=== PATIENT | female | born 1950 | race Caucasian/White ===

== ENCOUNTER → 2017-03-03 | Outpatient (REF) | payer MEDICARE, OTHER | LOC: M SFHCWAGY 13:49 | PROVIDERS: ATTEND Nurse Practitioner Family | DX: Z12.4 Encounter for screening for malignant neoplasm of cervix (principal) ==

== ENCOUNTER → 2017-03-03 | Outpatient (CLI) | payer MEDICARE, OTHER ==
--- NOTE | 2017-03-03 15:28 | REPMRS ---
Patient History The patient states she had a clinical breast exam in 02/2017. Patient is postmenopausal. Family history of prostate cancer in father. Digital Woman Screen Mammo: March 03, 2017 - Exam #: [id number] Bilateral CC and MLO view(s) were taken. Technologist: Anne Hicks, Technologist Prior study comparison: March 02, 2016, digital woman screen mammo performed at [facility]. January 23, 2015, digital woman screen mammo performed at [facility] to [facility]. FINDINGS: There are scattered fibroglandular densities. There has been no change in the appearance of the mammogram from the prior studies. There is a mild amount of residual fibroglandular tissue which is fairly symmetric. There is no interval development of dominant mass, architectural distortion, or clustered microcalcification suggestive of malignancy. ASSESSMENT: BI-RADS/ACR category 1 mammogram. Negative. Recommendation Routine screening mammogram in 1 year (for women over age 40). This mammogram was interpreted with the aid of an FDA-approved computer-aided dectection system. Electronically Signed By: Amol Cyr MD 03/03/17 1623
== END ==
LOC: M WHC 13:17
PROVIDERS: ATTEND Nurse Practitioner Family
DX: Z12.31 Encounter for screening mammogram for malignant neoplasm of breast (principal); Z78.0 Asymptomatic menopausal state; Z12.4 Encounter for screening for malignant neoplasm of cervix; N90.4 Leukoplakia of vulva; N95.2 Postmenopausal atrophic vaginitis; Z12.12 Encounter for screening for malignant neoplasm of rectum
CPT/HCPCS: 82270; G0101; G0123; G0202

== ENCOUNTER → 2017-03-18 | Outpatient (REF) | payer MEDICARE, OTHER ==
[2017-03-18 12:58] LABS: MEAN CORPUSCULAR HEMOGLOBIN 30.4 pg (27.0-33.0); MEAN CORPUSCULAR HGB CONC 32.8 g/dl (32.0-36.5); MEAN CORPUSCULAR VOLUME 92.5 fl (80.0-96.0); RED CELL DISTRIBUTION WIDTH 13.1 % (11.5-14.5); WHITE BLOOD COUNT 5.3 K/mm3 (4.0-10.0)
[2017-03-18 14:20] LABS: ALBUMIN/GLOBULIN RATIO 1.38 (1.00-1.93); ALKALINE PHOSPHATASE 79 U/L (45-117); ALT/SGPT 27 U/L (12-78); ANION GAP 8 MEQ/L (8-16); AST/SGOT 14 U/L (15-37); BILIRUBIN,TOTAL 0.3 MG/DL (0.2-1.0); BLOOD UREA NITROGEN 11 MG/DL (7-18); CALCIUM LEVEL 9.2 MG/DL (8.8-10.2); CARBON DIOXIDE LEVEL 31 MEQ/L (21-32); CHLORIDE LEVEL 104 MEQ/L (98-107); CHOLESTEROL LEVEL 185 MG/DL (<200); CREATININE FOR GFR 0.74 MG/DL (0.55-1.02); GLOMERULAR FILTRATION RATE > 60.0 (>45); GLUCOSE, FASTING 72 MG/DL (80-110); MAGNESIUM LEVEL 2.2 MG/DL (1.8-2.4); POTASSIUM SERUM 4.1 MEQ/L (3.5-5.1); SODIUM LEVEL 143 MEQ/L (136-145); TOTAL PROTEIN 6.9 GM/DL (6.4-8.2); TRIGLYCERIDES LEVEL 131 MG/DL (<150)
== END ==
LOC: M LABDRAW1 09:01
PROVIDERS: ATTEND Nurse Practitioner Adult Health
DX: Z00.00 Encounter for general adult medical examination without abnormal findings (principal)

== ENCOUNTER 2017-06-19 12:23 | Emergency (ER) | payer MEDICARE, OTHER ==
[~2017-06-19] VITALS: Ht 177.8 cm; Wt 68.3 kg
[2017-06-19] MEDS ORDERED: MELO15TA4 PO (12:35)
--- NOTE | 2017-06-19 13:30 | REP ---
RIGHT WRIST, FOUR VIEWS: HISTORY: Fall. There is no acute fracture or dislocation. There is narrowing of the first carpometacarpal joint space with associated osteophyte formation. Small calcified densities are present in the ventral and dorsal soft tissue. This represents ligamentous or tendon calcification. IMPRESSION: There is no acute fracture or dislocation. Signed by Yasmani Chin MD 06/19/2017 01:47 P
[2017-06-19] MEDS ORDERED: ADACEL/BOOSTRIX VACCINE (DIPHTH/PERTUSS/ACELL/TETANUS)0.5ML SYR (90715) IM ONE (14:15)
[2017-06-19 14:22] VITALS: BP 162/71
== END 2017-06-19 14:27 | disposition home or self-care (01) ==
LOC: M ED 12:23
DX: S01.111A Laceration without foreign body of right eyelid and periocular area, initial encounter (principal); S05.11XA Contusion of eyeball and orbital tissues, right eye, initial encounter; S63.501A Unspecified sprain of right wrist, initial encounter; W01.0XXA Fall on same level from slipping, tripping and stumbling without subsequent striking against object, initial encounter; Y92.410 Unspecified street and highway as the place of occurrence of the external cause; Y93.89 Activity, other specified; Y99.8 Other external cause status; Z79.899 Other long term (current) drug therapy

== ENCOUNTER → 2018-05-25 | Outpatient (CLI) | payer MEDICARE, OTHER | LOC: M WHC 13:11 | DX: Z12.31 Encounter for screening mammogram for malignant neoplasm of breast (principal); Z78.0 Asymptomatic menopausal state; Z80.3 Family history of malignant neoplasm of breast | CPT/HCPCS: 77067 ==

== ENCOUNTER → 2019-07-03 | Outpatient (CLI) | payer MEDICARE, OTHER ==
[~2019-07-03] MED LIST: MELO15TA28 PO
--- NOTE | 2019-07-03 15:16 | REPMRS ---
Patient History The patient states she had a clinical breast exam in June 2019.Family history of prostate cancer in father, breast cancer at age 50 or over in maternal grandmother. Digital Woman Screen Mammo: July 03, 2019 - Exam #: [id number] Bilateral CC and MLO view(s) were taken. Technologist: Marisol Beal, Technologist Prior study comparison: May 25, 2018, bilateral digital woman screen mammo performed at [facility]. March 03, 2017, digital woman screen mammo performed at [facility]. March 02, 2016, digital woman screen mammo performed at [facility]. FINDINGS: The breast tissue is heterogeneously dense. This may lower the sensitivity of mammography. There is a moderate amount of heterogeneously dense fibroglandular tissue which is fairly symmetric. There is no interval development of dominant mass, architectural distortion, or grouped microcalcification typical of malignancy. There has been no change in the appearance of the mammogram from the prior studies. 3-D tomosynthesis shows no additional findings. Assessment: BI-RADS/ACR category 1 mammogram. Negative Mammogram. Recommendation Routine screening mammogram of both breasts in 1 year (for women over age 40). This patient's Lifetime Breast Cancer RIsk is estimated at 9.3 %. This mammogram was interpreted with the aid of an FDA-approved computer-aided dectection system. Electronically Signed By: Jelani Milner MD 07/03/19 0393
--- NOTE | 2019-07-07 11:59 | DEXA ---
AP SPINE L1 - L4 1.393 1.6 3.2 LT FEMUR TOTAL 0.950 -0.5 0.9 LT NECK 0.877 -1.2 0.4 RT FEMUR TOTAL 0.945 -0.5 0.8 RT NECK 0.863 -1.3 0.3 TOTAL BODY TOTAL OTHER COMMENTS: Normal bone densitometry of the spine. There is low bone density of the hips. The density of the spine has decreased 3.0% since the initial exam on 03/08/2002. The spine density has increased 7.2% since the most recent exam on 06/05/2009. The density of the left hip has decreased 14.1% since the initial exam on 03/08/2002. The density of the left hip has decreased 1.7% since the most recent exam on 06/05/2009. The density of the right hip has decreased 14.2% since the initial exam on 03/08/2002. The density of the right hip has decreased 2.5% since the most recent exam on 06/05/2009. FOLLOW-UP: Recommendation for the next bone density exam: 2 years. SAMMY
== END ==
LOC: M WHC 14:06
PROVIDERS: ATTEND Nurse Practitioner Family
DX: Z01.419 Encounter for gynecological examination (general) (routine) without abnormal findings (principal); Z12.31 Encounter for screening mammogram for malignant neoplasm of breast; N95.9 Unspecified menopausal and perimenopausal disorder; Z80.42 Family history of malignant neoplasm of prostate
CPT/HCPCS: 77063; 77067; 77080; G0101; G0463

== ENCOUNTER → 2020-04-05 | Outpatient (CLI) | payer MEDICARE, OTHER ==
[2020-04-05 18:37] LABS: ALBUMIN 4.1 GM/DL (3.2-5.2); ALT/SGPT 26 U/L (12-78); BILIRUBIN,TOTAL 0.5 MG/DL (0.2-1.0); BLOOD UREA NITROGEN 19 MG/DL (7-18); CALCIUM LEVEL 9.4 MG/DL (8.8-10.2); CARBON DIOXIDE LEVEL 33 MEQ/L (21-32); CHLORIDE LEVEL 102 MEQ/L (98-107); CHOLESTEROL LEVEL 209 MG/DL (<200); CHOLESTEROL RISK RATIO 2.111 (<5); CREATININE FOR GFR 0.82 MG/DL (0.55-1.30); GLOMERULAR FILTRATION RATE > 60.0 (>45); GLUCOSE, FASTING 125 MG/DL (70-100); HDL CHOLESTEROL 99 MG/DL (>40); LDL CHOLESTEROL 74 MG/DL (<100); NON-HDL-C 110 MG/DL; POTASSIUM SERUM 3.6 MEQ/L (3.5-5.1); SODIUM LEVEL 138 MEQ/L (136-145); TOTAL 25(OH) VITAMIN D 26.5 NG/ML (30.0-100.0); TOTAL PROTEIN 7.3 GM/DL (6.4-8.2); TRIGLYCERIDES LEVEL 179 MG/DL (<150)
== END ==
LOC: M PLALAB 15:07
PROVIDERS: ATTEND Nurse Practitioner Adult Health
DX: G04.39 Other acute necrotizing hemorrhagic encephalopathy (principal); Z13.29 Encounter for screening for other suspected endocrine disorder; Z13.21 Encounter for screening for nutritional disorder; Z13.220 Encounter for screening for lipoid disorders; Z79.899 Other long term (current) drug therapy

== ENCOUNTER → 2020-07-04 | Outpatient (CLI) | payer MEDICARE, OTHER ==
--- NOTE | 2020-07-04 15:18 | REPMRS ---
Patient History The patient states she had a clinical breast exam in 2019. Family history of prostate cancer in father, breast cancer at age 50 or over in maternal grandmother. Digital Woman Screen Mammo: July 04, 2020 - Exam #: [id number] Bilateral CC and MLO view(s) were taken. Technologist: Haleigh Victor, Technologist Prior study comparison: July 03, 2019, bilateral digital woman screen mammo performed at [facility]. May 25, 2018, bilateral digital woman screen mammo performed at [facility]. March 03, 2017, digital woman screen mammo performed at [facility]. FINDINGS: The breast tissue is heterogeneously dense. This may lower the sensitivity of mammography. The Volpara volumetric breast density category is: C. There is a moderate amount of heterogeneously dense fibroglandular tissue which is fairly symmetric. There is no interval development of dominant mass, architectural distortion, or grouped microcalcification typical of malignancy. There has been no change in the appearance of the mammogram from the prior studies. 3-D tomosynthesis shows no additional findings. Assessment: BI-RADS/ACR category 1 mammogram. Negative Mammogram. Recommendation Routine screening mammogram of both breasts in 1 year (for women over age 40). This patient's [facility] Lifetime Breast Cancer RIsk is estimated at 8.8 %. This mammogram was interpreted with the aid of an FDA-approved computer-aided dectection system. Electronically Signed By: Jelani Milner MD 07/04/20 0479
== END ==
LOC: M WHC 14:05
PROVIDERS: ATTEND Nurse Practitioner Family
DX: Z12.31 Encounter for screening mammogram for malignant neoplasm of breast (principal); Z80.42 Family history of malignant neoplasm of prostate; Z80.0 Family history of malignant neoplasm of digestive organs

== ENCOUNTER → 2021-09-23 | Outpatient (REF) | payer MEDICARE, OTHER | LOC: M SFHCWAGY 13:16 | PROVIDERS: ATTEND Specialist | DX: Z01.419 Encounter for gynecological examination (general) (routine) without abnormal findings (principal); N95.2 Postmenopausal atrophic vaginitis ==

== ENCOUNTER → 2021-09-23 | Outpatient (CLI) | payer MEDICARE, OTHER | LOC: M WHC 11:33 | PROVIDERS: ATTEND Specialist | DX: Z12.31 Encounter for screening mammogram for malignant neoplasm of breast (principal) ==

== ENCOUNTER → 2021-12-09 | Outpatient (CLI) | payer MEDICARE, OTHER ==
[2021-12-09 17:10] LABS: HEMATOCRIT 36.6 % (36.0-47.0); HEMOGLOBIN 12.1 g/dl (12.0-15.5); MEAN CORPUSCULAR HEMOGLOBIN 30.8 pg (27.0-33.0); MEAN CORPUSCULAR HGB CONC 33.1 g/dl (32.0-36.5); MEAN CORPUSCULAR VOLUME 93.1 fl (80.0-96.0); PLATELET COUNT, AUTOMATED 191 10^3/uL (150-450); RED BLOOD COUNT 3.93 10^6/uL (4.00-5.40); WHITE BLOOD COUNT 8.2 10^3/uL (4.0-10.0)
[2021-12-09 17:36] LABS: ALBUMIN 3.9 GM/DL (3.2-5.2); ALT/SGPT 28 U/L (12-78); BILIRUBIN,TOTAL 0.3 MG/DL (0.2-1.0); BLOOD UREA NITROGEN 17 MG/DL (7-18); CALCIUM LEVEL 9.7 MG/DL (8.8-10.2); CARBON DIOXIDE LEVEL 30 MEQ/L (21-32); CHLORIDE LEVEL 104 MEQ/L (98-107); CHOLESTEROL LEVEL 197 MG/DL (<200); CHOLESTEROL RISK RATIO 2.493 (<5); FERRITIN 186 NG/ML (8-252); GLOMERULAR FILTRATION RATE > 60.0 (>39); GLUCOSE, FASTING 75 MG/DL (70-100); HDL CHOLESTEROL 79 MG/DL (>40); IRON (FE) 92 UG/DL (50-170); LDL CHOLESTEROL 53 MG/DL (<100); NON-HDL-C 118 MG/DL; PERCENT SATURATION 30.8 % (13.2-45.0); POTASSIUM SERUM 3.8 MEQ/L (3.5-5.1); SODIUM LEVEL 136 MEQ/L (136-145); TOTAL IRON BINDING CAPACITY 299 UG/DL (250-450); TOTAL PROTEIN 6.9 GM/DL (6.4-8.2); TRIGLYCERIDES LEVEL 326 MG/DL (<150)
[2021-12-09 17:42] LABS: TOTAL 25(OH) VITAMIN D 34.2 NG/ML (30.0-100.0)
== END ==
LOC: M PLALAB 15:34
PROVIDERS: ATTEND Nurse Practitioner Adult Health
DX: Z13.21 Encounter for screening for nutritional disorder (principal); Z13.220 Encounter for screening for lipoid disorders; T14.8XXA Other injury of unspecified body region, initial encounter; Z79.899 Other long term (current) drug therapy

== ENCOUNTER → 2022-12-22 | Outpatient (CLI) | payer MEDICARE, OTHER | LOC: M WHC 15:55 | PROVIDERS: ATTEND Nurse Practitioner Adult Health | DX: Z12.31 Encounter for screening mammogram for malignant neoplasm of breast (principal) ==

== ENCOUNTER → 2022-12-23 | Outpatient (REF) | payer MEDICARE, OTHER ==
[2022-12-23 18:47] LABS: ALBUMIN 3.8 G/DL (3.2-5.2); ALKALINE PHOSPHATASE 72 U/L (46-116); ALT/SGPT 16 U/L (7.0-40); AST/SGOT 14 U/L (<34); BILIRUBIN,TOTAL 0.4 MG/DL (0.3-1.2); BLOOD UREA NITROGEN 21 MG/DL (9-23); CALCIUM LEVEL 8.5 MG/DL (8.3-10.6); CARBON DIOXIDE LEVEL 30 MMOL/L (20-31); CHLORIDE LEVEL 105 MMOL/L (98-107); CHOLESTEROL LEVEL 184 MG/DL (<200); CHOLESTEROL RISK RATIO 2.38 (<5); CREATININE FOR GFR 0.75 MG/DL (0.55-1.30); GLOMERULAR FILTRATION RATE > 60.0 (>39); GLUCOSE, FASTING 82 MG/DL (74-106); HDL CHOLESTEROL 77.2 MG/DL (>40); LDL CHOLESTEROL 83.6 MG/DL (<100); NON-HDL-C 106.8 MG/DL; POTASSIUM SERUM 4.4 MMOL/L (3.5-5.1); SODIUM LEVEL 141 MMOL/L (136-145); TOTAL PROTEIN 6.4 G/DL (5.7-8.2); TRIGLYCERIDES LEVEL 116 MG/DL (<150)
[2022-12-23 18:49] LABS: THYROID STIMULATING HORMONE 3.119 uIU/ML (0.55-4.78)
== END ==
LOC: M SFHCPLAZ 08:20
PROVIDERS: ATTEND Nurse Practitioner Adult Health
DX: Z00.00 Encounter for general adult medical examination without abnormal findings (principal); Z13.220 Encounter for screening for lipoid disorders; Z79.899 Other long term (current) drug therapy

== ENCOUNTER → 2023-12-23 | Outpatient (REF) | payer MEDICARE, OTHER ==
[2023-12-23 18:36] LABS: HEMOGLOBIN 13.1 g/dl (12.0-15.5); MEAN CORPUSCULAR HEMOGLOBIN 31.5 pg (27.0-33.0); MEAN CORPUSCULAR HGB CONC 32.8 g/dl (32.0-36.5); MEAN CORPUSCULAR VOLUME 96.2 fl (80.0-96.0); PLATELET COUNT, AUTOMATED 196 10^3/uL (150-450); RED BLOOD COUNT 4.16 10^6/uL (4.00-5.40); WHITE BLOOD COUNT 4.6 10^3/uL (4.0-10.0)
[2023-12-23 19:13] LABS: THYROID STIMULATING HORMONE 4.154 uIU/ML (0.55-4.78)
[2023-12-23 19:14] LABS: ALBUMIN 3.8 G/DL (3.2-5.2); ALKALINE PHOSPHATASE 73 U/L (46-116); ALT/SGPT 22 U/L (7.0-40); AST/SGOT 18 U/L (<34); BILIRUBIN,TOTAL 0.4 MG/DL (0.3-1.2); BLOOD UREA NITROGEN 13 MG/DL (9-23); CALCIUM LEVEL 9.4 MG/DL (8.3-10.6); CARBON DIOXIDE LEVEL 27 MMOL/L (20-31); CHLORIDE LEVEL 107 MMOL/L (98-107); CHOLESTEROL LEVEL 192 MG/DL (<200); CHOLESTEROL RISK RATIO 2.61 (<5); CREATININE FOR GFR 0.71 MG/DL (0.55-1.30); GLOMERULAR FILTRATION RATE > 60.0 (>39); GLUCOSE, FASTING 76 MG/DL (74-106); HDL CHOLESTEROL 73.4 MG/DL (>40); LDL CHOLESTEROL 71.4 MG/DL (<100); NON-HDL-C 118.6 MG/DL; POTASSIUM SERUM 4.2 MMOL/L (3.5-5.1); SODIUM LEVEL 142 MMOL/L (136-145); TOTAL 25(OH) VITAMIN D 16.2 NG/ML (20.0-100.0); TOTAL PROTEIN 6.5 G/DL (5.7-8.2); TRIGLYCERIDES LEVEL 236 MG/DL (<150)
== END ==
LOC: M SFHCPLAZ 07:50
PROVIDERS: ATTEND Nurse Practitioner Adult Health
DX: Z00.00 Encounter for general adult medical examination without abnormal findings (principal); Z13.220 Encounter for screening for lipoid disorders; Z13.21 Encounter for screening for nutritional disorder; Z79.899 Other long term (current) drug therapy

== ENCOUNTER → 2023-12-24 | Outpatient (CLI) | payer MEDICARE, OTHER | LOC: M WHC 10:18 | PROVIDERS: ATTEND Nurse Practitioner Adult Health | DX: Z12.31 Encounter for screening mammogram for malignant neoplasm of breast (principal) ==

== ENCOUNTER → 2024-01-12 | Outpatient (CLI) | payer MEDICARE, OTHER | LOC: M WHC 13:33 | PROVIDERS: ATTEND Nurse Practitioner Adult Health | DX: M85.851 Other specified disorders of bone density and structure, right thigh (principal); M85.852 Other specified disorders of bone density and structure, left thigh ==